=== PATIENT | female | born 1990 | race African-American/Black ===

== ENCOUNTER 2017-07-22 15:53 | Emergency (ER) | payer MEDICAID ==
[~2017-07-22] VITALS: Ht 180.3 cm; Wt 67.0 kg
[2017-07-22] MEDS ORDERED: DEPOP150I IM (16:06)
[2017-07-22 16:11] VITALS: BP 131/86
== END 2017-07-22 17:18 | disposition home or self-care (01) ==
LOC: EMS 15:55
DX: J35.8 Other chronic diseases of tonsils and adenoids (principal); R03.0 Elevated blood-pressure reading, without diagnosis of hypertension; F17.210 Nicotine dependence, cigarettes, uncomplicated; Z79.899 Other long term (current) drug therapy
CPT/HCPCS: 99281

== ENCOUNTER 2017-12-23 01:24 | Emergency (ER) | payer MEDICAID ==
[~2017-12-23] VITALS: Ht 180.3 cm; Wt 64.5 kg
[~2017-12-23 01:24] MED LIST: DEPOP150I IM
[2017-12-23 01:33] VITALS: BP 147/93
[2017-12-23] MEDS ORDERED: CALC-1038 PO (01:36)
== END 2017-12-23 03:56 | disposition left against medical advice (07) ==
LOC: EMS 01:25
DX: M54.2 Cervicalgia (principal); M54.6 Pain in thoracic spine; M79.601 Pain in right arm; F12.90 Cannabis use, unspecified, uncomplicated; F17.210 Nicotine dependence, cigarettes, uncomplicated; Z53.21 Procedure and treatment not carried out due to patient leaving prior to being seen by health care provider

== ENCOUNTER 2020-11-29 04:47 | Emergency (ER) | payer MEDICAID ==
[~2020-11-29] VITALS: Ht 180.3 cm; Wt 64.1 kg
[~2020-11-29 04:47] MED LIST changes: +CALC-1038 PO
[2020-11-29 04:50] VITALS: BP 126/78
[2020-11-29] MEDS ORDERED: HYDROCODONE/ACETAMINOPHEN 5-325 MG TABLET PO ONE (06:15)
== END 2020-11-29 06:24 | disposition home or self-care (01) ==
LOC: EMS 04:47
DX: K02.9 Dental caries, unspecified (principal); F17.210 Nicotine dependence, cigarettes, uncomplicated; F12.90 Cannabis use, unspecified, uncomplicated
CPT/HCPCS: 99283

== ENCOUNTER 2021-01-12 15:57 | Emergency (ER) | payer MEDICAID ==
[~2021-01-12] VITALS: Ht 180.3 cm; Wt 64.5 kg
[2021-01-12 16:40] VITALS: BP 134/50
[2021-01-12] MEDS ORDERED: IBUPROFEN 600 MG TABLET PO ONE (18:00)
[2021-01-12] MEDS ORDERED: AMOX TR/POT CLAV 875 MG/125 MG TABLET PO ONE (18:00)
== END 2021-01-12 18:25 | disposition home or self-care (01) ==
LOC: EMS 15:57
DX: K04.7 Periapical abscess without sinus (principal); F17.210 Nicotine dependence, cigarettes, uncomplicated; F12.90 Cannabis use, unspecified, uncomplicated
CPT/HCPCS: 99283

== ENCOUNTER 2023-08-07 17:46 | Emergency (ER) | payer SELFPAY ==
[~2023-08-07] VITALS: Ht 180.3 cm; Wt 71.8 kg
[~2023-08-07 17:46] MED LIST changes: -DEPOP150I IM; +MEDR150V13 IM
[2023-08-07 18:08] VITALS: TEMP 97.9
[2023-08-07 21:45] VITALS: BP 127/78; PULSE 76; RESP 18
[2023-08-07] MEDS ORDERED: SULF-261 PO (22:44)
[2023-08-07] MEDS ORDERED: CEPH-558 PO (22:44)
[2023-08-07] MEDS ORDERED: ACET-3385 PO (22:44)
[2023-08-07] MEDS: CEPHALEXIN MONOHYDRATE 500 MG CAPSULE PO ONE (22:46)
[2023-08-07] MEDS: ACETAMINOPHEN 500 MG TABLET PO ONE (22:46)
[2023-08-07] MEDS: SULFAMETHOX/TRIMETH DS 800-160 MG/TABLET PO ONE (22:46)
== END 2023-08-07 22:53 | disposition home or self-care (01) ==
LOC: EMS 17:57
DX: L03.221 Cellulitis of neck (principal); F17.210 Nicotine dependence, cigarettes, uncomplicated; F12.90 Cannabis use, unspecified, uncomplicated
CPT/HCPCS: 99284; Z7502; Z7610